=== PATIENT | male | born 1945 | race Caucasian/White ===

== ENCOUNTER 2022-12-01 00:02 | Inpatient (IN) | payer OTHER ==
[2022-12-01 01:48] LABS: #Lymphocytes 0.5 thou/uL (1.20-3.40); #Monocytes 1.3 thou/uL (0.11-0.59); #Neutrophils 10.4 thou/uL (1.40-6.50); %Eosinophils 0.1 % (0.0-10.0); %Lymphocytes 4.1 % (21.0-51.0); %Monocytes 10.6 % (0.0-10.0); %Neutrophils 85.2 % (42.0-75.0); Hemoglobin 15.4 g/dL (14.0-18.0); Mean Corpuscular Hemoglobin 34.7 pg (27.0-31.0); Mean Platelet Volume 7.3 fL (7.4-10.4); Platelet Count 264 10x3/uL (130-400); RBC Distribution Width 14.6 % (11.5-14.5); Red Blood Cell (RBC) Count 4.43 mill/uL (4.70-6.10); White Blood Cell (WBC) Count 12.3 10x3/uL (4.8-10.8)
[2022-12-01 02:05] LABS: Base Excess 10.8 mEq/L (-2.0 to +3.0); Calcium, Ionized (venous) 1.04 mmol/L (1.16-1.32); Chloride (VBG) 74 mmol/L (98-106); Hemoglobin (Hb) 16.8 g/dL (12.6-17.4); Potassium (VBG) 4.54 mmol/L (3.70-5.30); pH (venous) 7.29 (7.32-7.43)
[2022-12-01 02:07] LABS: Acetaminophen Less than 10.0 mcg/mL (10.0-30.0); Alcohol Less than 10 mg/dL (Less than 10); Salicylate Less than 8.0 mg/dL (15.0-30.0)
[2022-12-01 02:08] LABS: Actual Bicarbonate (HCO3v) 43 mEq/L (22-28)
[2022-12-01 02:19] LABS: ALT (SGPT) 33 U/L (8-55); AST (SGOT) 47 U/L (5-34); Albumin 3.7 g/dL (3.4-4.8); Alkaline Phosphatase 110 U/L (40-110); Anion Gap 12 mmol/L (10-20); BUN (Urea Nitrogen) 17 mg/dL (8.4-25.7); Bilirubin, Total 1.3 mg/dL (0.2-1.2); Calc. Creatinine Clearance 0 mL/min (70-130); Calcium 9.3 mg/dL (7.8-10.44); Carbon Dioxide 37 mmol/L (23-31); Chloride 74 mmol/L (98-107); Estimated GFR 102; Globulin 2.4 g/dL (2.4-3.5); Glucose 116 mg/dL (83-110); Potassium 4.6 mmol/L (3.5-5.1); Protein, Total 6.1 g/dL (5.8-8.1); Sodium 118 mmol/L (136-145)
[2022-12-01 02:26] LABS: Actual Bicarbonate (HCO3a) 38.9 mEq/L (22-28); Analyzer IN Cardio ER; Base Excess (BEa) 10.7 mEq/L (-2.0 to +3.0); Calcium, Ionized (arterial) 1.09 mmol/L (1.12-1.30); Carboxyhemoglobin (COHb) 3.5 gm% (0.0-3.0); Hemoglobin (Hb) 15.4 g/dL (14.0-18.0); Potassium - ABG Lab 4.26 mmol/L (3.70-5.30); pH, Arterial 7.38 (7.35-7.45)
[2022-12-01 02:28] LABS: CO2 Tension 66.6 mmHg (35.0-45.0); O2 Tension (PaO2), arterial 59.6 mmHg (> 70.0)
[2022-12-01 02:29] LABS: Puncture Site RRA
[2022-12-01] MEDS ORDERED: LORazepam 2 MG/ML SYR.(CARPUJECT) ONE (02:52)
[2022-12-01] MEDS ORDERED: Sodium Chloride 0.9% 1,000 ML IV SCH (03:30)
[2022-12-01 03:55] LABS: SARS-CoV-2 NAA Rapid Test Not Detected (NotDetected)
[2022-12-01] MEDS ORDERED: Ondansetron ODT 4 MG TAB PO PRN ×2 (04:03→04:36)
[2022-12-01] MEDS ORDERED: Acetaminophen 650 MG Suppository PR PRN (04:03)
[2022-12-01] MEDS ORDERED: Ondansetron PF 4 MG/2 ML Vial IVP PRN (04:03)
[2022-12-01] MEDS ORDERED: Ipratropium/Albuterol 3 ML NEB NEB PRN (04:12)
[2022-12-01] MEDS ORDERED: methylPREDNISolone Sod Succ/PF 125 MG/2 ML VIAL IVP SCH (04:14)
[2022-12-01] MEDS ORDERED: Furosemide 40 MG/4 ML VIAL SLOW IVP SCH (04:15)
[2022-12-01] MEDS ORDERED: Sodium Chloride 256 MEQ in Sterile Water 936 ML IV SCH (04:15)
[2022-12-01] MEDS ORDERED: Dexmedetomidine In 0.9 % NaCl 100 ML IVPB SCH (04:30)
[2022-12-01] MEDS ORDERED: Lorazepam 2 MG/ML VIAL IM PRN (04:36)
[2022-12-01] MEDS ORDERED: Lorazepam 1 MG TAB PO PRN (04:36)
[2022-12-01] MEDS ORDERED: Electrolyte Replacement Protocol 1 EACH FS SCH (04:45)
[2022-12-01] MEDS ORDERED: VANCOMYCIN 1.25 GM/250 ML BAG 1.25 GM in Premix Bag 1 BAG IVPB SCH (04:45)
[2022-12-01] MEDS ORDERED: Piperacillin/Tazobactam 3.375 GM in Sodium Chloride 0.9% 100 ML IVPB SCH ×3 (04:45→18:00)
[2022-12-01 04:54] LABS: Anion Gap 13 mmol/L (10-20); BUN (Urea Nitrogen) 18 mg/dL (8.4-25.7); Calc. Creatinine Clearance 0 mL/min (70-130); Calcium 8.8 mg/dL (7.8-10.44); Carbon Dioxide 35 mmol/L (23-31); Chloride 73 mmol/L (98-107); Estimated GFR 103; Glucose 113 mg/dL (83-110); Potassium 4.4 mmol/L (3.5-5.1)
[2022-12-01 04:59] LABS: Sodium 117 mmol/L (136-145)
[2022-12-01 05:00] LABS: Band 17 % (5-11); Hemoglobin 15.2 g/dL (14.0-18.0); MDiff Complete? YES; Mean Corpuscular HGB CONC 33.9 g/dL (32.0-36.0); Mean Corpuscular Hemoglobin 35.5 pg (27.0-31.0); Mean Platelet Volume 7.4 fL (7.4-10.4); Monocytes 10 % (0-10); Neutrophil 73 % (42-75); Platelet Count 262 10x3/uL (130-400); Platelet Morphology Comment Appears Adequate; RBC Distribution Width 14.3 % (11.5-14.5); RBC Morphology Normal; Red Blood Cell (RBC) Count 4.28 mill/uL (4.70-6.10)
[2022-12-01] MEDS ORDERED: Doxycycline 100 MG in Sodium Chloride 0.9% 100 ML IVPB SCH (05:00)
[2022-12-01] MEDS: Lorazepam 1 MG TAB PO SCH ×4 (05:18→22:45)
[2022-12-01] MEDS: Thiamine HCl 200 MG/2 ML VIAL SLOW IVP SCH (05:36)
[2022-12-01] MEDS ORDERED: Vancomycin 1.5 GRAM/300 ML BAG 1.5 GM in Premix Bag 1 BAG IVPB SCH (06:00)
[2022-12-01] MEDS ORDERED: Cefepime 2 GM in Sodium Chloride 0.9% 100 ML IVPB SCH (06:00)
[2022-12-01 06:24] LABS: Magnesium 1.7 mg/dL (1.6-2.6); Phosphorus 2.5 mg/dL (2.3-4.7)
[2022-12-01 06:30] LABS: Bacteria/HPF None Seen HPF (None Seen); Bilirubin Negative (Negative); Blood, Urine Negative (Negative); CAUTI Indications for Culture Alt mental st,lethar; Clarity Clear (Clear); Glucose, Urine (Dipstick) Normal (Negative); Ketone, Urine Negative (Negative); Leukocyte Negative Leu/uL (Negative); Nitrite Negative (Negative); Protein, Urine (Dipstick) Negative (Neg-Trace); RBC/HPF 0-3 HPF (0-3); Specific Gravity, Urine 1.008 (1.002-1.036); Squamous Epithelial None Seen HPF (0-3); Urobilinogen Normal mg/dL (Less than 2); WBC/HPF 0-3 HPF (0-3); pH, Urine 5.5 (5.0-9.0)
[2022-12-01 06:35] LABS: Urine Culture Reflex No No
[2022-12-01] MEDS: Ipratropium/Albuterol 3 ML NEB NEB SCH ×5 (06:35→21:26)
[2022-12-01 06:38] LABS: Amphetamine Not Detected (NotDetected); Barbiturates Screen Not Detected (NotDetected); Benzodiazepine Screen Not Detected (NotDetected); Cocaine Metabolite Screen Not Detected (NotDetected); Methadone Not Detected (NotDetected); Methamphetamine Not Detected (NotDetected); Opiate Screen Not Detected (NotDetected); Oxycodone Screen Not Detected (NotDetected); Phencyclidine (PCP) Not Detected (NotDetected); THC/Cannabinoid Screen Not Detected (NotDetected); Tricyclic Screen Not Detected (NotDetected)
[2022-12-01] MEDS ORDERED: FLU VACC QS2022-23(65YR UP)/PF 240 MCG/0.7 ML SYRINGE IM ONE (08:00)
[2022-12-01] MEDS ORDERED: Magnesium 2 GM/50 ML(in water) 2 GM in Premix Bag 1 BAG IVPB SCH (08:00)
[2022-12-01 08:10] LABS: Anion Gap 17 mmol/L (10-20); BUN (Urea Nitrogen) 16 mg/dL (8.4-25.7); Calc. Creatinine Clearance 116 mL/min (70-130); Calcium 8.2 mg/dL (7.8-10.44); Carbon Dioxide 29 mmol/L (23-31); Chloride 75 mmol/L (98-107); Estimated GFR 106; Glucose 111 mg/dL (83-110); Potassium 4.2 mmol/L (3.5-5.1)
[2022-12-01 08:23] LABS: Sodium 117 mmol/L (136-145)
[2022-12-01] MEDS: Multivit, Therapeutic 1 TAB PO SCH (09:58)
[2022-12-01] MEDS: Folic Acid 1 MG TAB PO SCH (09:58)
[2022-12-01] MEDS: methylPREDNISolone Sod Succ 40 MG VIAL IVP SCH ×2 (11:40→17:44)
[2022-12-01 12:00] LABS: Anion Gap 14 mmol/L (10-20); BUN (Urea Nitrogen) 16 mg/dL (8.4-25.7); Calc. Creatinine Clearance 102 mL/min (70-130); Calcium 8.4 mg/dL (7.8-10.44); Carbon Dioxide 36 mmol/L (23-31); Chloride 73 mmol/L (98-107); Estimated GFR 102; Glucose 111 mg/dL (83-110)
[2022-12-01 12:06] LABS: Sodium 119 mmol/L (136-145)
[2022-12-01] MEDS: Sodium Chloride 256 MEQ in Sterile Water 936 ML IV SCH ×2 (12:49→20:29)
[2022-12-01 16:10] LABS: Anion Gap 13 mmol/L (10-20); BUN (Urea Nitrogen) 16 mg/dL (8.4-25.7); Calc. Creatinine Clearance 106 mL/min (70-130); Calcium 8.3 mg/dL (7.8-10.44); Carbon Dioxide 34 mmol/L (23-31); Chloride 77 mmol/L (98-107); Estimated GFR 104; Glucose 98 mg/dL (83-110); Potassium 4.2 mmol/L (3.5-5.1); Sodium 120 mmol/L (136-145)
[2022-12-01] MEDS: Vancomycin 1 GM in Premix Bag 1 BAG IVPB SCH (17:44)
[2022-12-01] MEDS: Piperacillin/Tazobactam 3.375 GM in Sodium Chloride 0.9% 100 ML IVPB SCH (20:33)
[2022-12-02] MEDS: methylPREDNISolone Sod Succ 40 MG VIAL IVP SCH ×5 (00:23→23:33)
[2022-12-02 00:30] LABS: Anion Gap 14 mmol/L (10-20); BUN (Urea Nitrogen) 17 mg/dL (8.4-25.7); Calc. Creatinine Clearance 97 mL/min (70-130); Calcium 8.3 mg/dL (7.8-10.44); Carbon Dioxide 33 mmol/L (23-31); Chloride 81 mmol/L (98-107); Estimated GFR 101; Glucose 96 mg/dL (83-110); Potassium 4.2 mmol/L (3.5-5.1); Sodium 124 mmol/L (136-145)
[2022-12-02] MEDS: Ipratropium/Albuterol 3 ML NEB NEB SCH ×6 (02:10→22:05)
[2022-12-02 03:13] LABS: Anion Gap 13 mmol/L (10-20); BUN (Urea Nitrogen) 18 mg/dL (8.4-25.7); Calc. Creatinine Clearance 97 mL/min (70-130); Calcium 8.4 mg/dL (7.8-10.44); Carbon Dioxide 34 mmol/L (23-31); Chloride 82 mmol/L (98-107); Estimated GFR 101; Glucose 93 mg/dL (83-110); Potassium 3.8 mmol/L (3.5-5.1); Sodium 125 mmol/L (136-145)
[2022-12-02] MEDS: Piperacillin/Tazobactam 3.375 GM in Sodium Chloride 0.9% 100 ML IVPB SCH ×3 (04:08→19:41)
[2022-12-02] MEDS ORDERED: Lorazepam 1 MG TAB PO PRN (04:36)
[2022-12-02] MEDS: Lorazepam 1 MG TAB PO SCH ×4 (05:31→23:03)
[2022-12-02 05:32] LABS: #Lymphocytes 0.4 thou/uL (1.20-3.40); #Neutrophils 11.6 thou/uL (1.40-6.50); %Basophils 0.1 % (0.0-1.0); %Lymphocytes 3.1 % (21.0-51.0); %Monocytes 7.9 % (0.0-10.0); %Neutrophils 88.9 % (42.0-75.0); Hemoglobin 13.3 g/dL (14.0-18.0); Mean Corpuscular Hemoglobin 35.8 pg (27.0-31.0); Mean Platelet Volume 7.6 fL (7.4-10.4); Platelet Count 229 10x3/uL (130-400); RBC Distribution Width 14.1 % (11.5-14.5); Red Blood Cell (RBC) Count 3.72 mill/uL (4.70-6.10); White Blood Cell (WBC) Count 13.1 10x3/uL (4.8-10.8)
[2022-12-02] MEDS: Thiamine HCl 200 MG/2 ML VIAL SLOW IVP SCH (05:39)
[2022-12-02] MEDS: Vancomycin 1 GM in Premix Bag 1 BAG IVPB SCH ×2 (05:40→17:25)
[2022-12-02 05:45] LABS: ALT (SGPT) 40 U/L (8-55); AST (SGOT) 63 U/L (5-34); Alkaline Phosphatase 80 U/L (40-110); Anion Gap 11 mmol/L (10-20); BUN (Urea Nitrogen) 18 mg/dL (8.4-25.7); Bilirubin, Total 1.2 mg/dL (0.2-1.2); Calc. Creatinine Clearance 100 mL/min (70-130); Calcium 8.4 mg/dL (7.8-10.44); Carbon Dioxide 36 mmol/L (23-31); Chloride 84 mmol/L (98-107); Estimated GFR 101; Globulin 2.1 g/dL (2.4-3.5); Glucose 98 mg/dL (83-110); Magnesium 1.8 mg/dL (1.6-2.6); Phosphorus 2.4 mg/dL (2.3-4.7); Potassium 3.8 mmol/L (3.5-5.1); Protein, Total 5.1 g/dL (5.8-8.1); Sodium 127 mmol/L (136-145)
[2022-12-02] MEDS ORDERED: Magnesium 2 GM/50 ML(in water) 2 GM in Premix Bag 1 BAG IVPB SCH (08:00)
[2022-12-02] MEDS ORDERED: methylPREDNISolone Sod Succ 40 MG VIAL IVP SCH (09:00)
[2022-12-02] MEDS: Sodium Chloride 256 MEQ in Sterile Water 936 ML IV SCH ×2 (09:29→14:51)
[2022-12-02] MEDS: Pantoprazole 40 MG VIAL IVP SCH (09:30)
[2022-12-02] MEDS: Folic Acid 1 MG TAB PO SCH (09:43)
[2022-12-02] MEDS: Multivit, Therapeutic 1 TAB PO SCH (09:43)
[2022-12-02 10:57] LABS: Anion Gap 16 mmol/L (10-20); BUN (Urea Nitrogen) 17 mg/dL (8.4-25.7); Calc. Creatinine Clearance 111 mL/min (70-130); Calcium 8.2 mg/dL (7.8-10.44); Carbon Dioxide 29 mmol/L (23-31); Chloride 86 mmol/L (98-107); Estimated GFR 104; Glucose 109 mg/dL (83-110); Potassium 3.8 mmol/L (3.5-5.1); Sodium 127 mmol/L (136-145)
[2022-12-02 17:35] LABS: Vancomycin, Trough 10.2 ug/mL
[2022-12-02 19:27] LABS: Anion Gap 15 mmol/L (10-20); BUN (Urea Nitrogen) 17 mg/dL (8.4-25.7); Calc. Creatinine Clearance 111 mL/min (70-130); Calcium 7.9 mg/dL (7.8-10.44); Carbon Dioxide 29 mmol/L (23-31); Chloride 87 mmol/L (98-107); Estimated GFR 104; Glucose 106 mg/dL (83-110); Potassium 3.6 mmol/L (3.5-5.1); Sodium 127 mmol/L (136-145)
[2022-12-03] MEDS: Ipratropium/Albuterol 3 ML NEB NEB SCH ×6 (02:38→22:26)
[2022-12-03] MEDS: Piperacillin/Tazobactam 3.375 GM in Sodium Chloride 0.9% 100 ML IVPB SCH ×3 (03:43→20:23)
[2022-12-03 04:34] LABS: #Lymphocytes 0.3 thou/uL (1.20-3.40); #Monocytes 0.8 thou/uL (0.11-0.59); #Neutrophils 9.2 thou/uL (1.40-6.50); %Eosinophils 0.1 % (0.0-10.0); %Lymphocytes 2.5 % (21.0-51.0); %Monocytes 7.4 % (0.0-10.0); Hemoglobin 12.7 g/dL (14.0-18.0); Mean Corpuscular HGB CONC 33.6 g/dL (32.0-36.0); Mean Corpuscular Hemoglobin 35.8 pg (27.0-31.0); Platelet Count 194 10x3/uL (130-400); RBC Distribution Width 14.7 % (11.5-14.5); Red Blood Cell (RBC) Count 3.56 mill/uL (4.70-6.10); White Blood Cell (WBC) Count 10.2 10x3/uL (4.8-10.8)
[2022-12-03] MEDS ORDERED: Lorazepam 1 MG TAB PO PRN (04:36)
[2022-12-03 04:53] LABS: Anion Gap 15 mmol/L (10-20); BUN (Urea Nitrogen) 15 mg/dL (8.4-25.7); Calc. Creatinine Clearance 107 mL/min (70-130); Calcium 7.9 mg/dL (7.8-10.44); Carbon Dioxide 29 mmol/L (23-31); Chloride 90 mmol/L (98-107); Estimated GFR 103; Glucose 102 mg/dL (83-110); Potassium 3.8 mmol/L (3.5-5.1); Sodium 130 mmol/L (136-145)
[2022-12-03] MEDS: Sodium Chloride 256 MEQ in Sterile Water 936 ML IV SCH ×2 (04:57→20:24)
[2022-12-03] MEDS: Lorazepam 0.5 MG TAB PO SCH ×4 (04:58→22:24)
[2022-12-03] MEDS: Thiamine HCl 200 MG/2 ML VIAL SLOW IVP SCH (05:54)
[2022-12-03] MEDS: methylPREDNISolone Sod Succ 40 MG VIAL IVP SCH ×4 (05:55→23:14)
[2022-12-03] MEDS ORDERED: Vancomycin HCl 1.25 GM in Sodium Chloride 0.9% 250 ML 250 ML IVPB SCH (06:00)
[2022-12-03 09:07] LABS: Phosphorus 2.7 mg/dL (2.3-4.7)
[2022-12-03] MEDS: Pantoprazole 40 MG VIAL IVP SCH (09:07)
[2022-12-03] MEDS: Folic Acid 1 MG TAB PO SCH (09:07)
[2022-12-03] MEDS ORDERED: Magnesium 2 GM/50 ML(in water) 2 GM in Premix Bag 1 BAG IVPB SCH (09:45)
[2022-12-03] MEDS ORDERED: Lorazepam 2 MG/ML VIAL SLOW IVP PRN (22:30)
[2022-12-03] MEDS: Lorazepam 2 MG/ML VIAL SLOW IVP SCH (23:16)
[2022-12-04] MEDS: Ipratropium/Albuterol 3 ML NEB NEB SCH ×6 (02:13→22:14)
[2022-12-04] MEDS: Piperacillin/Tazobactam 3.375 GM in Sodium Chloride 0.9% 100 ML IVPB SCH ×3 (04:00→20:27)
[2022-12-04 04:33] LABS: #Lymphocytes 0.3 thou/uL (1.20-3.40); #Monocytes 0.9 thou/uL (0.11-0.59); #Neutrophils 7.7 thou/uL (1.40-6.50); %Eosinophils 0.1 % (0.0-10.0); %Monocytes 9.8 % (0.0-10.0); %Neutrophils 87.1 % (42.0-75.0); Hemoglobin 12.7 g/dL (14.0-18.0); Mean Corpuscular HGB CONC 33.7 g/dL (32.0-36.0); Mean Corpuscular Hemoglobin 36.6 pg (27.0-31.0); Mean Platelet Volume 7.4 fL (7.4-10.4); Platelet Count 227 10x3/uL (130-400); Red Blood Cell (RBC) Count 3.48 mill/uL (4.70-6.10); White Blood Cell (WBC) Count 8.8 10x3/uL (4.8-10.8)
[2022-12-04] MEDS ORDERED: Lorazepam 0.5 MG TAB PO PRN (04:36)
[2022-12-04 04:53] LABS: Anion Gap 11 mmol/L (10-20); BUN (Urea Nitrogen) 13 mg/dL (8.4-25.7); Calc. Creatinine Clearance 109 mL/min (70-130); Calcium 7.8 mg/dL (7.8-10.44); Carbon Dioxide 33 mmol/L (23-31); Chloride 101 mmol/L (98-107); Estimated GFR 104; Glucose 118 mg/dL (83-110); Potassium 3.1 mmol/L (3.5-5.1); Sodium 142 mmol/L (136-145)
[2022-12-04] MEDS: Lorazepam 2 MG/ML VIAL SLOW IVP SCH (05:18)
[2022-12-04] MEDS: methylPREDNISolone Sod Succ 40 MG VIAL IVP SCH ×4 (05:18→23:29)
[2022-12-04] MEDS: Potassium Chloride 20 MEQ in Premix Bag 1 BAG IVPB SCH ×2 (08:34→10:24)
[2022-12-04] MEDS: Pantoprazole 40 MG VIAL IVP SCH (08:34)
[2022-12-04] MEDS ORDERED: Thiamine 100 MG TAB PO SCH (09:00)
[2022-12-04] MEDS: Folic Acid 1 MG TAB PO SCH (11:20)
[2022-12-04] MEDS: Thiamine 100 MG TAB PO SCH (11:20)
[2022-12-04 15:43] LABS: Base Excess (BEa) 8.2 mEq/L (-2.0 to +3.0); CO2 Tension 71.2 mmHg (35.0-45.0); Hemoglobin (Hb) 14.7 g/dL (14.0-18.0); O2 Tension (PaO2), arterial 54.8 mmHg (> 70.0); Potassium - ABG Lab 3.82 mmol/L (3.70-5.30); pH, Arterial 7.33 (7.35-7.45)
[2022-12-04 15:44] LABS: Puncture Site RRA
[2022-12-04] MEDS: Scopolamine 1.5 mg/72 hour Patch TOP SCH (17:40)
[2022-12-05] MEDS: Ipratropium/Albuterol 3 ML NEB NEB SCH ×6 (02:28→22:19)
[2022-12-05] MEDS: Piperacillin/Tazobactam 3.375 GM in Sodium Chloride 0.9% 100 ML IVPB SCH ×3 (03:07→21:12)
[2022-12-05 05:03] LABS: #Lymphocytes 0.3 thou/uL (1.20-3.40); #Monocytes 1.4 thou/uL (0.11-0.59); #Neutrophils 12.1 thou/uL (1.40-6.50); %Eosinophils 0.1 % (0.0-10.0); %Neutrophils 87.9 % (42.0-75.0); Hemoglobin 13.1 g/dL (14.0-18.0); Mean Corpuscular HGB CONC 33.2 g/dL (32.0-36.0); Mean Corpuscular Hemoglobin 36.4 pg (27.0-31.0); Mean Platelet Volume 7.5 fL (7.4-10.4); Platelet Count 206 10x3/uL (130-400); RBC Distribution Width 14.9 % (11.5-14.5); Red Blood Cell (RBC) Count 3.59 mill/uL (4.70-6.10); White Blood Cell (WBC) Count 13.7 10x3/uL (4.8-10.8)
[2022-12-05 05:18] LABS: BUN (Urea Nitrogen) 12 mg/dL (8.4-25.7); Calc. Creatinine Clearance 110 mL/min (70-130); Calcium 8.2 mg/dL (7.8-10.44); Estimated GFR 103; Glucose 169 mg/dL (83-110)
[2022-12-05 05:27] LABS: Anion Gap 17 mmol/L (10-20); Carbon Dioxide 32 mmol/L (23-31); Chloride 96 mmol/L (98-107); Potassium 3.4 mmol/L (3.5-5.1); Sodium 142 mmol/L (136-145)
[2022-12-05] MEDS: methylPREDNISolone Sod Succ 40 MG VIAL IVP SCH ×3 (05:30→18:51)
[2022-12-05] MEDS: Potassium Chloride 20 MEQ in Premix Bag 1 BAG IVPB SCH ×2 (07:38→09:13)
[2022-12-05] MEDS: Pantoprazole 40 MG VIAL IVP SCH (09:12)
[2022-12-05] MEDS: Thiamine 100 MG TAB PO SCH (09:12)
[2022-12-05] MEDS: Folic Acid 1 MG TAB PO SCH (09:12)
[2022-12-05] MEDS: Acetaminophen 325 MG TAB PO PRN (12:44)
[2022-12-06] MEDS: methylPREDNISolone Sod Succ 40 MG VIAL IVP SCH ×5 (01:08→23:28)
[2022-12-06] MEDS: Ipratropium/Albuterol 3 ML NEB NEB SCH ×6 (02:45→22:04)
[2022-12-06] MEDS: Piperacillin/Tazobactam 3.375 GM in Sodium Chloride 0.9% 100 ML IVPB SCH ×3 (03:29→23:28)
[2022-12-06 03:55] LABS: #Lymphocytes 0.4 thou/uL (1.20-3.40); #Monocytes 0.9 thou/uL (0.11-0.59); #Neutrophils 9.6 thou/uL (1.40-6.50); %Basophils 0.1 % (0.0-1.0); %Eosinophils 0.1 % (0.0-10.0); %Lymphocytes 3.3 % (21.0-51.0); %Monocytes 8.3 % (0.0-10.0); %Neutrophils 88.2 % (42.0-75.0); Hemoglobin 13.4 g/dL (14.0-18.0); Mean Corpuscular HGB CONC 32.8 g/dL (32.0-36.0); Mean Corpuscular Hemoglobin 36.5 pg (27.0-31.0); Mean Platelet Volume 7.7 fL (7.4-10.4); Platelet Count 205 10x3/uL (130-400); RBC Distribution Width 14.9 % (11.5-14.5); Red Blood Cell (RBC) Count 3.67 mill/uL (4.70-6.10); White Blood Cell (WBC) Count 10.8 10x3/uL (4.8-10.8)
[2022-12-06 04:16] LABS: BUN (Urea Nitrogen) 19 mg/dL (8.4-25.7); Calc. Creatinine Clearance 115 mL/min (70-130); Calcium 8.7 mg/dL (7.8-10.44); Estimated GFR 105; Glucose 166 mg/dL (83-110)
[2022-12-06 04:25] LABS: Anion Gap 11 mmol/L (10-20); Carbon Dioxide 43 mmol/L (23-31); Chloride 94 mmol/L (98-107); Potassium 4.4 mmol/L (3.5-5.1); Sodium 144 mmol/L (136-145)
[2022-12-06] MEDS: Folic Acid 1 MG TAB PO SCH (09:15)
[2022-12-06] MEDS: Thiamine 100 MG TAB PO SCH (09:15)
[2022-12-06] MEDS: Pantoprazole 40 MG VIAL IVP SCH (09:16)
[2022-12-06 20:19] LABS: Fluid, Triglycerides Less than 11 mg/dL (Not Available); Pleural Fluid, Amylase 39 U/L (Not Available); Pleural Fluid, Glucose 156 mg/dL; Pleural Fluid, LDH 82 U/L (Not Available); Pleural Fluid, Protein Less than 1.0 g/dL
[2022-12-06 20:24] LABS: RBC Count-Automated (BF) 2408 /cu.mm; WBC/Nucleated-Auto (BF) 149 /cu.mm
[2022-12-06 20:49] LABS: BF Color Yellow; Body Fluid Source Thoracentesis Fluid; Clarity Clear (Clear); Tube # EDTA
[2022-12-06 20:51] LABS: BF Segmented Neutrophils 54 %; Cell Count Non Hematic 27 %; Lymphocytes 19 %
[2022-12-07] MEDS: Ipratropium/Albuterol 3 ML NEB NEB SCH ×6 (02:48→22:42)
[2022-12-07] MEDS: Piperacillin/Tazobactam 3.375 GM in Sodium Chloride 0.9% 100 ML IVPB SCH ×3 (06:09→20:33)
[2022-12-07] MEDS: methylPREDNISolone Sod Succ 40 MG VIAL IVP SCH ×3 (06:09→16:57)
[2022-12-07] MEDS: Thiamine 100 MG TAB PO SCH (09:58)
[2022-12-07] MEDS: Folic Acid 1 MG TAB PO SCH (09:58)
[2022-12-07] MEDS: Pantoprazole 40 MG VIAL IVP SCH (10:03)
[2022-12-07] MEDS: Scopolamine 1.5 mg/72 hour Patch TOP SCH (16:37)
[2022-12-08] MEDS: methylPREDNISolone Sod Succ 40 MG VIAL IVP SCH ×5 (00:39→23:25)
[2022-12-08] MEDS: Ipratropium/Albuterol 3 ML NEB NEB SCH ×2 (01:58→07:35)
[2022-12-08] MEDS: Piperacillin/Tazobactam 3.375 GM in Sodium Chloride 0.9% 100 ML IVPB SCH ×3 (05:03→20:56)
[2022-12-08] MEDS: Folic Acid 1 MG TAB PO SCH (08:05)
[2022-12-08] MEDS: Thiamine 100 MG TAB PO SCH (08:05)
[2022-12-08] MEDS: Pantoprazole 40 MG VIAL IVP SCH (08:30)
[2022-12-08 09:00] LABS: #Basophils 0.1 thou/uL (0.0-0.2); #Lymphocytes 1.1 thou/uL (1.20-3.40); #Monocytes 0.4 thou/uL (0.11-0.59); #Neutrophils 11.8 thou/uL (1.40-6.50); %Basophils 0.5 % (0.0-1.0); %Eosinophils 0.1 % (0.0-10.0); %Lymphocytes 8.3 % (21.0-51.0); %Monocytes 2.9 % (0.0-10.0); %Neutrophils 88.2 % (42.0-75.0); Hemoglobin 15.8 g/dL (14.0-18.0); Mean Corpuscular HGB CONC 33.7 g/dL (32.0-36.0); Mean Corpuscular Hemoglobin 37.3 pg (27.0-31.0); Mean Platelet Volume 9.4 fL (7.4-10.4); Platelet Count 167 10x3/uL (130-400); RBC Distribution Width 14.8 % (11.5-14.5); Red Blood Cell (RBC) Count 4.24 mill/uL (4.70-6.10); White Blood Cell (WBC) Count 13.4 10x3/uL (4.8-10.8)
[2022-12-08 11:44] LABS: BUN (Urea Nitrogen) 19 mg/dL (8.4-25.7); Calc. Creatinine Clearance 109 mL/min (70-130); Calcium 9.2 mg/dL (7.8-10.44); Estimated GFR 106; Glucose 102 mg/dL (83-110)
[2022-12-08 11:53] LABS: Anion Gap 18 mmol/L (10-20); Carbon Dioxide 32 mmol/L (23-31); Chloride 93 mmol/L (98-107); Potassium 4.6 mmol/L (3.5-5.1); Sodium 138 mmol/L (136-145)
[2022-12-09] MEDS: methylPREDNISolone Sod Succ 40 MG VIAL IVP SCH ×3 (04:52→17:38)
[2022-12-09] MEDS: Piperacillin/Tazobactam 3.375 GM in Sodium Chloride 0.9% 100 ML IVPB SCH ×3 (04:52→20:19)
[2022-12-09] MEDS: Thiamine 100 MG TAB PO SCH (08:49)
[2022-12-09] MEDS: Folic Acid 1 MG TAB PO SCH (08:49)
[2022-12-09] MEDS: Pantoprazole 40 MG VIAL IVP SCH (08:50)
[2022-12-09] MEDS: Melatonin 3 MG TAB PO PRN (20:55)
[2022-12-10] MEDS: Piperacillin/Tazobactam 3.375 GM in Sodium Chloride 0.9% 100 ML IVPB SCH (03:58)
[2022-12-10] MEDS: Pantoprazole 40 MG VIAL IVP SCH (08:06)
[2022-12-10] MEDS: Folic Acid 1 MG TAB PO SCH (08:06)
[2022-12-10] MEDS: Thiamine 100 MG TAB PO SCH (08:06)
[2022-12-10 08:13] LABS: #Lymphocytes 0.7 thou/uL (1.20-3.40); #Monocytes 2.3 thou/uL (0.11-0.59); #Neutrophils 16.8 thou/uL (1.40-6.50); %Eosinophils 0.1 % (0.0-10.0); %Lymphocytes 3.5 % (21.0-51.0); %Monocytes 11.7 % (0.0-10.0); %Neutrophils 84.7 % (42.0-75.0); Hemoglobin 15.6 g/dL (14.0-18.0); Mean Corpuscular HGB CONC 31.8 g/dL (32.0-36.0); Mean Corpuscular Hemoglobin 34.9 pg (27.0-31.0); Mean Platelet Volume 7.3 fL (7.4-10.4); Platelet Count 421 10x3/uL (130-400); Red Blood Cell (RBC) Count 4.46 mill/uL (4.70-6.10); White Blood Cell (WBC) Count 19.9 10x3/uL (4.8-10.8)
[2022-12-10 08:37] LABS: Anion Gap 14 mmol/L (10-20); BUN (Urea Nitrogen) 29 mg/dL (8.4-25.7); Calc. Creatinine Clearance 87 mL/min (70-130); Calcium 9.5 mg/dL (7.8-10.44); Carbon Dioxide 35 mmol/L (23-31); Chloride 94 mmol/L (98-107); Estimated GFR 99; Glucose 142 mg/dL (83-110); Potassium 3.7 mmol/L (3.5-5.1); Sodium 139 mmol/L (136-145)
[2022-12-10] MEDS ORDERED: methylPREDNISolone Sod Succ 40 MG VIAL IVP SCH (09:00)
[2022-12-10] MEDS: Scopolamine 1.5 mg/72 hour Patch TOP SCH (16:36)
[2022-12-10] MEDS: Temazepam 15 MG CAP PO PRN (20:13)
[2022-12-10] MEDS: Melatonin 3 MG TAB PO PRN (20:13)
[2022-12-11] MEDS: Folic Acid 1 MG TAB PO SCH (08:41)
[2022-12-11] MEDS: Lansoprazole 15 MG/5 ML (BATCHED)UDCUP PER TUBE SCH (08:41)
[2022-12-11] MEDS: Thiamine 100 MG TAB PO SCH (08:41)
[2022-12-11] MEDS: methylPREDNISolone Sod Succ 40 MG VIAL IVP SCH (08:41)
[2022-12-11] MEDS: Temazepam 15 MG CAP PO PRN (19:55)
[2022-12-12] MEDS ORDERED: Ipratropium/Albuterol 3 ML NEB NEB PRN (09:08)
[2022-12-12 09:41] LABS: Base Excess 14.2 mEq/L (-2.0 to +3.0); Calcium, Ionized (venous) 1.07 mmol/L (1.16-1.32); Chloride (VBG) 94 mmol/L (98-106); Potassium (VBG) 4.15 mmol/L (3.70-5.30); Sodium 140.1 mmol/L (133-146); pH (venous) 7.48 (7.32-7.43)
[2022-12-12 09:46] LABS: Actual Bicarbonate (HCO3v) 41 mEq/L (22-28)
[2022-12-12] MEDS: Thiamine 100 MG TAB PO SCH (09:46)
[2022-12-12] MEDS: Folic Acid 1 MG TAB PO SCH (09:46)
[2022-12-12] MEDS: methylPREDNISolone Sod Succ 40 MG VIAL IVP SCH (09:47)
[2022-12-12] MEDS: Lansoprazole 15 MG/5 ML (BATCHED)UDCUP PER TUBE SCH (09:51)
[2022-12-12] MEDS: QUEtiapine 25 MG TAB PER TUBE SCH (20:19)
[2022-12-12] MEDS ORDERED: Metoprolol Tartrate 5 MG/5 ML VIAL IVP SCH (22:00)
[2022-12-12] MEDS: Temazepam 15 MG CAP PO PRN (22:11)
[2022-12-12 22:55] LABS: BUN (Urea Nitrogen) 33 mg/dL (8.4-25.7); Calc. Creatinine Clearance 110 mL/min (70-130); Calcium 9.1 mg/dL (7.8-10.44); Estimated GFR 106; Glucose 148 mg/dL (83-110)
[2022-12-12 23:05] LABS: Anion Gap 14 mmol/L (10-20); Carbon Dioxide 38 mmol/L (23-31); Chloride 94 mmol/L (98-107); Potassium 4.4 mmol/L (3.5-5.1); Sodium 142 mmol/L (136-145)
[2022-12-13] MEDS ORDERED: Magnesium 2 GM/50 ML(in water) 2 GM in Premix Bag 1 BAG IVPB SCH (08:00)
[2022-12-13] MEDS: Lansoprazole 15 MG/5 ML (BATCHED)UDCUP PER TUBE SCH (08:49)
[2022-12-13] MEDS: methylPREDNISolone Sod Succ 40 MG VIAL IVP SCH (08:49)
[2022-12-13] MEDS: Folic Acid 1 MG TAB PO SCH (08:49)
[2022-12-13] MEDS: Thiamine 100 MG TAB PO SCH (08:49)
[2022-12-13] MEDS ORDERED: Piperacillin/Tazobactam 3.375 GM in Sodium Chloride 0.9% 100 ML IVPB SCH (11:00)
[2022-12-13] MEDS ORDERED: Lidocaine 1% (PF) 30 ML VIAL ONE (11:09)
[2022-12-13 13:47] VITALS: BMI 18.6
[2022-12-13 15:16] LABS: Fluid, pH - Pleural Fld Greater than 7.50 (7.60 - 7.66)
[2022-12-13] MEDS: Piperacillin/Tazobactam 3.375 GM in Sodium Chloride 0.9% 100 ML IVPB SCH ×2 (15:21→23:54)
[2022-12-13] MEDS: Scopolamine 1.5 mg/72 hour Patch TOP SCH (15:21)
[2022-12-13] MEDS: Acetaminophen 325 MG TAB PO PRN ×2 (15:21→20:25)
[2022-12-13 15:34] LABS: Pleural Fluid, Protein 1.7 g/dL
[2022-12-13 15:44] LABS: RBC Count-Automated (BF) 1316 /cu.mm; WBC/Nucleated-Auto (BF) 348 /cu.mm
[2022-12-13 16:17] LABS: BF Color Yellow; Body Fluid Source Thoracentesis Fluid; Clarity Clear (Clear); Tube # EDTA
[2022-12-13 16:22] LABS: BF Segmented Neutrophils 57 %; Cell Count Non Hematic 38 %; Lymphocytes 5 %
[2022-12-13] MEDS: QUEtiapine 25 MG TAB PER TUBE SCH (20:24)
[2022-12-14] MEDS: Piperacillin/Tazobactam 3.375 GM in Sodium Chloride 0.9% 100 ML IVPB SCH ×2 (06:09→16:24)
[2022-12-14] MEDS: Lansoprazole 15 MG/5 ML (BATCHED)UDCUP PER TUBE SCH (08:50)
[2022-12-14] MEDS: Thiamine 100 MG TAB PO SCH (08:50)
[2022-12-14] MEDS: Folic Acid 1 MG TAB PO SCH (08:50)
[2022-12-14] MEDS: methylPREDNISolone Sod Succ 40 MG VIAL IVP SCH (08:50)
[2022-12-14] MEDS: Acetaminophen 325 MG TAB PO PRN (16:26)
[2022-12-14] MEDS: Temazepam 15 MG CAP PO PRN (21:56)
[2022-12-14] MEDS: QUEtiapine 25 MG TAB PER TUBE SCH (21:56)
[2022-12-15] MEDS: Piperacillin/Tazobactam 3.375 GM in Sodium Chloride 0.9% 100 ML IVPB SCH ×4 (00:01→22:00)
[2022-12-15] MEDS: methylPREDNISolone Sod Succ 40 MG VIAL IVP SCH (08:54)
[2022-12-15] MEDS: Lansoprazole 15 MG/5 ML (BATCHED)UDCUP PER TUBE SCH (08:54)
[2022-12-15] MEDS: Folic Acid 1 MG TAB PO SCH (08:54)
[2022-12-15] MEDS: Thiamine 100 MG TAB PO SCH (08:55)
[2022-12-15] MEDS: Temazepam 15 MG CAP PO PRN (20:05)
[2022-12-15] MEDS: QUEtiapine 25 MG TAB PER TUBE SCH (20:05)
[2022-12-15] MEDS: Melatonin 3 MG TAB PO PRN (23:25)
[2022-12-16] MEDS ORDERED: Labetalol HCl 100 MG/20 ML VIAL SLOW IVP SCH (00:45)
[2022-12-16] MEDS: Acetaminophen 325 MG TAB PO PRN (04:16)
[2022-12-16 05:05] LABS: Band 21 % (5-11); Hemoglobin 13.8 g/dL (14.0-18.0); Lymphocytes 2 % (21-51); MDiff Complete? YES; Macrocytosis SLIGHT = 6-15 cells (100X) (0-5/hpf); Mean Corpuscular HGB CONC 32.1 g/dL (32.0-36.0); Mean Corpuscular Hemoglobin 35.7 pg (27.0-31.0); Mean Platelet Volume 8.5 fL (7.4-10.4); Monocytes 13 % (0-10); Neutrophil 64 % (42-75); Platelet Count 381 10x3/uL (130-400); Platelet Morphology Comment Appears Adequate; RBC Distribution Width 14.6 % (11.5-14.5); Red Blood Cell (RBC) Count 3.87 mill/uL (4.70-6.10); White Blood Cell (WBC) Count 23.2 10x3/uL (4.8-10.8)
[2022-12-16 05:07] LABS: ALT (SGPT) 18 U/L (8-55); AST (SGOT) 15 U/L (5-34); Albumin 2.8 g/dL (3.4-4.8); Alkaline Phosphatase 55 U/L (40-110); BUN (Urea Nitrogen) 38 mg/dL (8.4-25.7); Bilirubin, Total 0.8 mg/dL (0.2-1.2); Calc. Creatinine Clearance 96 mL/min (70-130); Calcium 9.2 mg/dL (7.8-10.44); Estimated GFR 102; Globulin 2.6 g/dL (2.4-3.5); Glucose 135 mg/dL (83-110); Magnesium 2.1 mg/dL (1.6-2.6); Phosphorus 2.6 mg/dL (2.3-4.7); Protein, Total 5.4 g/dL (5.8-8.1)
[2022-12-16 05:16] LABS: Anion Gap 16 mmol/L (10-20); Carbon Dioxide 34 mmol/L (23-31); Chloride 98 mmol/L (98-107); Potassium 4.4 mmol/L (3.5-5.1); Sodium 144 mmol/L (136-145)
[2022-12-16] MEDS: Piperacillin/Tazobactam 3.375 GM in Sodium Chloride 0.9% 100 ML IVPB SCH (05:59)
[2022-12-16] MEDS ORDERED: VANC/ZOSYN IVPB PRN (07:44)
[2022-12-16] MEDS ORDERED: Vancomycin 1 GM in Premix Bag 1 BAG IVPB SCH (07:45)
[2022-12-16] MEDS: Lansoprazole 15 MG/5 ML (BATCHED)UDCUP PER TUBE SCH (09:35)
[2022-12-16] MEDS: Folic Acid 1 MG TAB PO SCH (09:35)
[2022-12-16] MEDS: Thiamine 100 MG TAB PO SCH (09:36)
[2022-12-16] MEDS: Vancomycin 1 GM in Premix Bag 1 BAG IVPB SCH ×2 (09:36→21:13)
[2022-12-16] MEDS: methylPREDNISolone Sod Succ 40 MG VIAL IVP SCH (09:36)
[2022-12-16 12:09] VITALS: BP 105/60
[2022-12-16] MEDS ORDERED: Meropenem 1 GM in Sodium Chloride 0.9% 100 ML IVPB SCH ×2 (13:00→23:00)
[2022-12-16] MEDS ORDERED: Meropenem 500 MG in Sodium Chloride 0.9% 100 ML IVPB SCH (14:00)
[2022-12-16 14:53] LABS: HIV (1/2) Antibody/Antigen Non-Reactive (NonReactive); HIV 1/2 INDEX 0.55 S/CO (<1.00)
[2022-12-16 15:51] VITALS: TEMP 97.5
[2022-12-16] MEDS: Scopolamine 1.5 mg/72 hour Patch TOP SCH (16:30)
[2022-12-16] MEDS ORDERED: Multivit, Therapeutic 1 TAB PER TUBE SCH (21:00)
[2022-12-16] MEDS ORDERED: Zinc Sulfate 220 MG CAP PER TUBE SCH (21:00)
[2022-12-16] MEDS ORDERED: GUAIFENESIN SF SOLN 200 MG/10 ML UDCUP PER TUBE SCH (21:00)
[2022-12-16] MEDS ORDERED: QUEtiapine 25 MG TAB PER TUBE SCH (21:00)
[2022-12-16] MEDS: Temazepam 15 MG CAP PO PRN (21:13)
[2022-12-17] MEDS ORDERED: Lorazepam 2 MG/ML VIAL ONE (00:48)
[2022-12-17] MEDS ORDERED: Morphine 4 MG/ML VIAL SLOW IVP PRN (00:55)
[2022-12-17] MEDS ORDERED: Lorazepam 2 MG/ML VIAL SLOW IVP PRN (00:56)
[2022-12-17] MEDS ORDERED: Fluconazole In NaCl,Iso-Osm 400 MG in Premix Bag 1 BAG IVPB SCH (13:00)
== END 2022-12-17 02:20 | disposition expired | DRG 896 ==
LOC: ERS 00:02 → IMCU/EMU 03:10 → CCU 11:02 → IMCU/EMU 12-06 13:06
PROVIDERS: ADMIT Student in an Organized Health Care Education/Training Program; ATTEND Internal Medicine
PROC: 4A033R1 Measurement of Arterial Saturation, Peripheral, Percutaneous Approach (ICD-10-PCS; 2022-12-01)
PROC: 5A09457 Assistance with Respiratory Ventilation, 24-96 Consecutive Hours, Continuous Positive Airway Pressure (ICD-10-PCS; 2022-12-01)
PROC: 5A0945A Assistance with Respiratory Ventilation, 24-96 Consecutive Hours, High Flow/Velocity Cannula (ICD-10-PCS; 2022-12-05)
PROC: 0W9B3ZZ Drainage of Left Pleural Cavity, Percutaneous Approach (ICD-10-PCS; principal; 2022-12-06)
PROC: 0DH67UZ Insertion of Feeding Device into Stomach, Via Natural or Artificial Opening (ICD-10-PCS; 2022-12-06)
PROC: 0W9B3ZZ Drainage of Left Pleural Cavity, Percutaneous Approach (ICD-10-PCS; 2022-12-13)
DX: F10.231 Alcohol dependence with withdrawal delirium (principal); G93.41 Metabolic encephalopathy; J69.0 Pneumonitis due to inhalation of food and vomit; J96.01 Acute respiratory failure with hypoxia; J96.02 Acute respiratory failure with hypercapnia; E87.1 Hypo-osmolality and hyponatremia; J44.1 Chronic obstructive pulmonary disease with (acute) exacerbation; J90 Pleural effusion, not elsewhere classified; E44.0 Moderate protein-calorie malnutrition; Z68.1 Body mass index [BMI] 19.9 or less, adult; J44.0 Chronic obstructive pulmonary disease with (acute) lower respiratory infection; I50.9 Heart failure, unspecified; I11.0 Hypertensive heart disease with heart failure; F17.210 Nicotine dependence, cigarettes, uncomplicated; R13.12 Dysphagia, oropharyngeal phase; S01.01XA Laceration without foreign body of scalp, initial encounter; W19.XXXA Unspecified fall, initial encounter; E87.6 Hypokalemia; E83.42 Hypomagnesemia; K70.10 Alcoholic hepatitis without ascites; Z20.822 Contact with and (suspected) exposure to COVID-19; Z79.51 Long term (current) use of inhaled steroids; Z79.899 Other long term (current) drug therapy; Y92.89 Other specified places as the place of occurrence of the external cause
CPT/HCPCS: 36415; 36600; 70450; 71045; 71250; 72125; 74018; 80048; 80053; 80202; 80306; 80307; 81001; 82140; 82150; 82533; 82805; 82945; 83605; 83615; 83735; 83880; 83930; 83935; 83986; 84100; 84145; 84157; 84443; 84478; 84484; 85025; 85060; 87040; 87070; 87116; 87205; 87206; 87324; 87389; 87449; 88112; 88305; 89051; 93005; 93010; 93306; 94640; 94660; 96374; A4217; C9113; J1650; J1940; J2060; J2185; J2270; J2543; J2920; J2930; J3370; J3370-JW; J3411; J3475; J3480; J3490; J7050; J7611; J7620; U0002